=== PATIENT | male | born 2000 | race Hispanic/Latino ===

== ENCOUNTER 2025-02-22 12:34 | Emergency (ER) | payer BC ==
[~2025-02-22] VITALS: Ht 167.6 cm; Wt 97.1 kg
--- NOTE | 2025-02-22 12:40 | NUR ---
[id number] [address] [place], [place]
[2025-02-22] MEDS ORDERED: AMOX1TAB16 PO (12:58)
--- NOTE | 2025-02-22 12:58 | ERN ---
General Chief Complaint: Animal Bite Stated Complaint: DOG BITE TP LT HAND Time Seen by MD: 12:39 Time Seen by Midlevel: 12:39 Source: patient History of Present Illness Initial Comments 24 y/o male presents to the ED due to dog bite to the left hand that occurred at approximately 11:00 a.m. Patient reports two dogs were fighting in his aunt's dog bit him. States the dog has all vaccinations. Patient denies any pain or further associated symptoms. Denies significant past medical history. Allergies: Coded Allergies: No Known Allergies (Unverified Allergy, Unknown, 02/22/25) Home Meds Active Scripts Amoxicillin/Potassium Clav (Amox Tr-K Clv 875-125 mg Tab) 875 Mg-125 Mg Tablet, 1 EACH PO BID for 7 Days, #14 TAB 0 Refills Prov:MYA MONTANEZ 02/22/25 Past Medical History Past Medical History: No Pertinent History Past Surgical History: None ROS Dictation Constitutional: Negative for fever,chills, and weight loss Eyes: Negative for injury, pain,redness, and discharge ENT: Negative for injury,pain or swelling Cardiovascular: Negative for chest pain, palpitations, and edema Respiratory: Negative for shortness of breath, cough, and wheezing, Abdomen/GI: Negative for abdominal pain, nausea, vomiting, diarrhea, and constipation Back: Negative for injury and pain : Negative for painful urination, bleeding or discharge MS/Extremity: Negative for injury and deformity Skin: Positive for dog bite wound Negative for rash, and discoloration Neuro: Negative for headache, weakness, numbness, tingling, and seizure Psych: Negative for suicide ideation, homicidal ideation, and hallucinations Physical Exam Physical Exam Dictation General: awake, alert, no acute distress Head/Face: Normocephalic, atraumatic Eyes: PERRL, EOMI, normal conjunctiva ENT: oral cavity clear, oral mucosa moist Neck: Supple, normal range of motion Cardiovascular: RRR, normal S1/S2 Respiratory: CTAB, no respiratory distress Skin: Warm, dry, normal turgor, no rash. Left hand two puncture wounds noted to the palmar aspect, no signs of infection MS/Extremity: Pulses equal, no cyanosis, neurovascular intact, FROM. Left hand normal range of motion, no erythema, normal sensory Neuro: COAx4, GCS 15, strength 5/5, CN 2-12 intact, normal cerebellar exam, normal gait Psych: Normal behavior, mood, and affect normal MDM MDM: Differential diagnosis: Dog bite, laceration, puncture wound Rationale: 24 y/o male presents to the ED due to dog bite to the left hand that occurred at approximately 11:00 a.m. Patient reports two dogs were fighting in his aunt's dog bit him. States the dog has all vaccinations. Patient denies any pain or further associated symptoms. Denies significant past medical history. Per physical examination two puncture wounds noted to the left hand, no signs of infection, normal range of motion, neurovascularly intact. Due to dog have no vaccinations and prolonged into the family, monitoring of the dog was recommended. Patient was administered Rocephin and prescribed antibiotics for outpatient treatment. Patient was educated on findings and diagnosis. Advised to follow up with PCP. Return to the emergency department if any worsening symptoms. Patient verbalized understanding. Patient is stable for discharge. There are no social concerns with this patient. I independently interpreted the test that were performed, results were reviewed by me and considered findings on radiology if ordered. Medical management and examination interpretation discussions were had by me with other qualified healthcare professionals as indicated for the patient's care. ED Course Orders Procedure Category Date Status Time Ceftriaxone 1g Vial PHA 02/22/25 Complete (Rocephine 1g Inj) 13:00 Current Medications Medications (Trade) Dose Ordered Sig/Diane Route PRN Reason Start Time Stop Time Status Last Admin Dose Admin Ceftriaxone Sodium (ROCEphine 1G INJ) 1 gm ONCE ONCE IVPB 02/22/25 13:00 02/22/25 13:01 DC Vital Signs Date Time Temp Pulse Resp B/P (MAP) Pulse Ox O2 Delivery O2 Flow Rate FiO2 02/22/25 12:36 98.2 101 16 147/101 Room Air 0 DX & DISP Disposition: Discharge Departure Impression: Primary Impression: Dog bite of hand Condition: Stable Scripts Amoxicillin/Potassium Clav (Amox Tr-K Clv 875-125 mg Tab) 875 Mg-125 Mg Tablet 1 EACH PO BID for 7 Days, #14 TAB 0 Refills Prov: MYA MONTANEZ 02/22/25 Additional Instructions: Discharge home. Rest. Follow up with primary care in 24 hours. Return to the ER for any acute changes or worsening symptoms. If any medications were prescribed take as directed. Okay to continue home medications unless otherwise discussed during your visit in the emergency room today. Patient was also advised to follow-up with primary care physician in 1 to 2 days for continued monitoring. Referrals: SELF,REFERRAL (PCP) I performed the substantive portion of the visit. I have reviewed and personally made and approve the management plan that is documented in the notes by myself or the JOANNE. I acknowledge full responsibility for the patient's management plan. MYA MONTANEZ Feb 22, 2025 12:58
--- NOTE | 2025-02-22 13:06 | NUR ---
TC TO [facility], DISPATCH STATES WILL CALL [facility] TO ADVISE THEM OF DOG BITE
[2025-02-22] MEDS: cefTRIAXone 1G VIAL IVPB ONE (13:54)
[2025-02-22] MEDS ORDERED: cefTRIAXone 1G VIAL IM ONE (14:00)
[2025-02-22 14:05] VITALS: BP 119/68; PULSE 78; RESP 16; TEMP 97.8; O2SAT 97
--- NOTE | 2025-02-22 14:14 | NUR ---
PT WAS ADVISED TO CALL [facility]ICE DEPARTMENT WHEN AT HOME TO REPORT DOG BITE
== END 2025-02-22 14:18 | disposition home or self-care (01) ==
LOC: EDH 12:34
DX: S61.452A Open bite of left hand, initial encounter (principal); Z79.899 Other long term (current) drug therapy; W54.0XXA Bitten by dog, initial encounter; Y93.89 Activity, other specified; Y92.89 Other specified places as the place of occurrence of the external cause; Y99.8 Other external cause status
CPT/HCPCS: 99284; 96374; J0696